=== PATIENT | female | born 2000 | race Caucasian/White ===

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

== ENCOUNTER 2020-03-03 12:27 | Emergency (ER) | payer BC, SELFPAY ==
[2020-03-03 12:30] VITALS: BP 116/77; PULSE 69; RESP 20; TEMP 36.8; O2SAT 98; BMI 31.8
--- NOTE | 2020-03-03 12:46 | HMH.EDUTC ---
[facility] [place] Impression: Otitis media Qualifiers: Otitis media type: unspecified Laterality: right Qualified Code(s): H66.91 - Otitis media, unspecified, right ear Otitis externa Qualifiers: Otitis externa type: unspecified type Chronicity: unspecified Laterality: right Qualified Code(s): H60.91 - Unspecified otitis externa, right ear Disposition: Home, Self-Care Condition on Discharge: Good Instructions: Middle Ear Infection, DI for Otitis Externa Additional Instructions: *Monitor Temp, Over the counter Motrin or Tylenol as directed/as needed Tylenol every 4 hours and Motrin every 6 hours (as long as your family doctor has told you that you can take it) for fever or pain. and straight to ER if unable to lower temp less than 101.0 after medication given *Warm salt water gargles may help to soothe the throat *Throat Lozenges *Warm fluids like tea with honey may help to soothe the throat *Sleep elevated *Humidifier/Vaporizer Take medications as prescribed FOllow up with ENT or Family Doctor if no improvement or any worsening of symptoms Follow up IMMEDIATELY for new or worsening symptoms or no Noticeable improvement over the next 48-72 hours. 911 for difficulty breathing or swallowing Prescriptions: Amoxicillin [Amoxicillin 875MG Tab] 875 mg PO Q12H #20 tab Transmission Status: Pending to [facility] # Neomyc/Colist/Hydrocort/Thonzn [Cortisporin-Tc Ear Suspension] 4 drops OT QID 7 Days #1 bottle Transmission Status: Pending to [facility] # Referrals: PCP,No [Primary Care Provider] - As needed Time of Disposition: 12:53 Medical Decision Making - Donovan Inquiry Pt receiving controlled substance: No Donovan was queried for this patient: No Vital Signs: 03/03/20 12:30 Temperature 98.3 F Temperature Source Oral Pulse Rate [Left Brachial] 69 Respiratory Rate 20 Blood Pressure [Left Arm] 116/77 Blood Pressure Mean [Left Arm] 90 Blood Pressure Source [Left Arm] Automatic Cuff Blood Pressure Position [Left Arm] Sitting 02 Sat by Pulse Oximetry 98 Oxygen Delivery Method Room Air [facility] [place] - General Stated complaint: R ear pain Time Seen by Provider: 03/03/20 12:46 Mode of Arrival: Ambulatory Source of Information: Patient Limitations: No Limitations Description of Symptoms (Recalled from Triage Doc. by RN): PATIENT STATES SHE SCRATCHED HER RIGHT HEAR YESTERDAY MORNING AND FELT A SHARP PAIN. THIS MORNING SHE SAYS IT IS PAINFUL AND SWOLLEN HEENT Symptoms (Recalled from RN notes): Yes Resp Symptoms (Recalled from RN notes): No Skin Symptoms (Recalled from RN notes): No MS Symptoms (Recalled from RN notes): No Functional Status (Recalled from RN notes): WNL - History of Present Illness Provider Complaint: Patient state that she has been having pain and swelling in her right ear State that she has been having some pain in it off and on and felt like it was getting infected and itchy States that yesterday it was itchy and she scratched it and now today it is hurting worse and feels like it is swelling States that she has had to have wick placed before and wanted to get it checked before it got too bad - Related Data Home Medications Medication Instructions Recorded Confirmed medroxyprogesterone 150 mg/mL 150 mg IM [id number] 04/29/18 04/29/18 intramuscular suspension Previous Rx's Medication Instructions Recorded Amoxicillin [Amoxicillin 875MG 875 mg PO Q12H #20 tab 03/03/20 Tab] Neomyc/Colist/Hydrocort/Thonzn 4 drops OT QID 7 Days #1 bottle 03/03/20 [Cortisporin-Tc Ear Suspension] Allergies Allergy/AdvReac Type Severity Reaction Status Date / Time No Known Allergies Allergy Verified 04/29/18 18:27 - Worker's Comp Is this a Worker's Comp case?: No 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
[2020-03-03 13:08] VITALS: BP 116/77; PULSE 69; RESP 20; TEMP 36.8; O2SAT 98
== END 2020-03-03 13:10 | disposition home or self-care (01) ==
PROVIDERS: Emergency Provider Nurse Practitioner
DX: H66.91 Otitis media, unspecified, right ear (principal); H60.91 Unspecified otitis externa, right ear
CPT/HCPCS: 99201

== ENCOUNTER 2020-03-04 18:07 | Emergency (ER) | payer BC, SELFPAY ==
[2020-03-04 18:31] VITALS: BP 110/74; PULSE 74; RESP 16; TEMP 37.1; O2SAT 98; BMI 27.4
--- NOTE | 2020-03-04 18:47 | HMH.EDUTC ---
[facility] [place] Clinical Impression: Ear problem Qualifiers: Laterality: right Qualified Code(s): H93.91 - Unspecified disorder of right ear Disposition: Home, Self-Care Condition on Discharge: Good Instructions: How to Use Ear Drops, How to Instill Ear Drops Additional Instructions: Continue to use the ear drops as prescribed, you may need family to help apply the drops in the ear Continue with oral antibiotics Follow up with your Family Doctor if no improvement or any worsening of symptoms Return if needed Straight to ER if any life threatening symptoms FOllow up with ENT if needed Referrals: PCP,No [Primary Care Provider] - As needed Colton Mulligan MD [Staff Physician] - Carolyn Fernando MD [Consulting Physician] - Time of Disposition: 18:56 Medical Decision Making - Donovan Inquiry Pt receiving controlled substance: Shakira Man was queried for this patient: No Vital Signs: 03/04/20 18:31 Temperature 98.7 F Temperature Source Oral Pulse Rate [Right] 74 Respiratory Rate 16 Blood Pressure [Left Arm] 110/74 Blood Pressure Mean [Left Arm] 86 Blood Pressure Source [Left Arm] Automatic Cuff Blood Pressure Position [Left Arm] Sitting 02 Sat by Pulse Oximetry 98 Oxygen Delivery Method Room Air Medical Decision Narrative: Patient was concerned that her right ear canal had swollen shut and wanted to see if she needed ear wick, at this time ear canal still open and able to get drops in Patient advised that if it continued to get worse follow up with her PCP or ENT for further evaluation and continue with medication as prescribed and possibly have family member help her apply drops in the ear [facility] [place] - General Stated complaint: R ear pain Time Seen by Provider: 03/04/20 18:47 Mode of Arrival: Ambulatory Source of Information: Patient Limitations: No Limitations Description of Symptoms (Recalled from Triage Doc. by RN): pt advises she was seen yesterday for ear ache and she thinks it has gotten worse today. Pt advsies she has been taking her medicine HEENT Symptoms (Recalled from RN notes): Yes (ear pain) Resp Symptoms (Recalled from RN notes): No Skin Symptoms (Recalled from RN notes): No MS Symptoms (Recalled from RN notes): No Functional Status (Recalled from RN notes): na - History of Present Illness Provider Complaint: Patient states that she was seen yesterday for otitis media and externa States that her right ear was swollen and she has been using the medication but was worried that it may be more swollen and worse and wanted to have it rechecked - Related Data Home Medications Medication Instructions Recorded Confirmed medroxyprogesterone 150 mg/mL 150 mg IM [id number] 04/29/18 03/03/20 intramuscular suspension Previous Rx's Medication Instructions Recorded Amoxicillin [Amoxicillin 875MG 875 mg PO Q12H #20 tab 03/03/20 Tab] Neomyc/Colist/Hydrocort/Thonzn 4 drops OT QID 7 Days #1 bottle 03/03/20 [Cortisporin-Tc Ear Suspension] Allergies Allergy/AdvReac Type Severity Reaction Status Date / Time No Known Allergies Allergy Verified 04/29/18 18:27 - Worker's Comp Is this a Worker's Comp case?: No [facility] History - Hepatitis A Screen Drug use history?: No High risk sexual behaviors?: No History of sexually transmitted infection?: No Currently employed?: No Childcare worker?: No Do you have indoor plumbing?: Yes Do you have electricity?: Yes Attestation statement:: This patient has been screened for Hepatitis A risk factors. I have reviewed the patient's past medical history: Yes Other Surgeries: Yes: No Previous Surgery Amputation: No Fractures: No - Social History Smoking Status: Never smoker Alcohol Intake: never Substance Use Type: denies use Occupational Status: other Housing: house Household Members: family Family Hx:: No significant family history ROS Obtained: Yes All systems reviewed & no additional complaints, Yes Systems reviewed as appropriate
[2020-03-04 18:58] VITALS: BP 112/70; PULSE 74; RESP 16; TEMP 36.9; O2SAT 98
== END 2020-03-04 18:59 | disposition home or self-care (01) ==
PROVIDERS: Emergency Provider Nurse Practitioner
DX: H66.91 Otitis media, unspecified, right ear (principal); H60.91 Unspecified otitis externa, right ear
CPT/HCPCS: 99201